=== PATIENT | male | born 1975 | race Caucasian/White ===

== ENCOUNTER 2017-10-24 16:36 | Emergency (ER) | payer OTHER ==
[~2017-10-24] VITALS: Ht 190.5 cm; Wt 127.0 kg
[~2017-10-24 16:36] MED LIST: ACETAMINOPHEN-1 EAC1 PO; ALPRAZOLAM 0.50.5 M1 PO; ALPRAZOLAM0.5 M1 PO; AMERGE2.5 MG PO; BUSPAR30 MG PO; BUSPIRONE HCL10 MG PO; BUTALB-APAP-CA1 EACH PO; CEFDINIR300 MG PO; CIPRO500 MG PO; CIPROFLOXACIN500 M1 PO; CLONAZEPAM 0.50.5 M1 PO; DICLOFENAC SODI75 MG; FIORICET 50-321 EACH PO; FLOMAX0.4 MG PO; FROVA2.5 MG PO; GABAPENTIN; GABAPENTIN 100100 MG PO; HYDROCODONE-AP1 EAC6 PO; LEVORPHANOL TART2 MG PO; LEVSIN0.125 MG SUBLING; LEXAPRO 10 MG T10 M1 PO; LUNESTA3 MG PO; MAPAP500 MG PO; MIDRIN; NAPROSYN500 MG PO; NORCO 5-325 TA1 EACH PO; NORTRIPTYLINE H10 M1 PO; NORTRIPTYLINE H75 M1 PO; OMEPRAZOLE40 MG PO; OSCIMIN0.125 MG SUBLING; PEPCID40 MG PO; PERCOCET 5-3251 EACH PO; PERCOCET 7.5-31 EACH PO; PHENAZOPYRIDIN200 M2 PO; PRISTIQ50 M1 PO; PRISTIQ50 MG PO; PYRIDIUM200 MG PO; QSYMIA 11.25 M1 EACH; REMERON15 MG PO; RIZATRIPTAN5 M1 PO; RIZATRIPTAN5 MG PO; TAMSULOSIN HCL0.4 MG PO; TOPROL XL100 MG PO; TOPROL XL50 MG PO; ULTRAM 50MG TAB50 MG PO; WELCHOL 625 MG625 M1 PO; XANAX1 MG PO; ZANTAC 150MG T150 MG; ZANTAC300 MG PO; ZOFRAN ODT4 MG; ZOFRAN ODT4 MG PO; ZOFRAN4 MG PO
[2017-10-24] MEDS ORDERED: DIPHENHIST50 MG PO (16:49)
[2017-10-24 17:08] LABS: ABSOLUTE BASOPHILS 0.1 thou/uL (0.0-0.2); ABSOLUTE EOSINOPHILS 0.3 thou/uL (0.0-0.7); ABSOLUTE LYMPHOCYTES 2.8 thou/uL (0.8-5.3); ABSOLUTE MONOCYTES 0.5 thou/uL (0.0-1.2); ABSOLUTE NEUTROPHILS 5.4 thou/uL (1.6-8.1); BASOPHILS 0.7 %; EOSINOPHILS 3.3 %; HEMATOCRIT 46.6 % (42.0-52.0); HEMOGLOBIN 15.6 gm/dL (14.0-18.0); LYMPHOCYTES 30.6 %; MCH 30.9 pg (26.0-34.0); MCHC 33.4 g/dL (28.0-37.0); MCV 92.5 fL (80.0-100.0); MPV 7.6 fl. (7.2-11.1); NUCLEATED RBCS 0 /100WBC; PLATELET COUNT* 206 thou/uL (150-400); POLYS 60.4 %; RBC 5.04 mil/uL (4.50-6.00); RDW-CV 13.1 % (10.5-14.5)
[2017-10-24 17:15] LABS: CALCIUM 8.6 mg/dL (8.5-10.1); CREATININE 1.1 mg/dL (0.6-1.3); POTASSIUM 4.1 mmol/L (3.5-5.1)
[2017-10-24 17:19] LABS: URINE BILIRUBIN NEGATIVE (Negative); URINE BLOOD NEGATIVE (Negative); URINE CLARITY CLEAR; URINE COLOR YELLOW; URINE GLUCOSE-RANDOM NEGATIVE (Negative); URINE KETONES NEGATIVE (Negative); URINE LEUKOCYTES-REFLEX NEGATIVE (Negative); URINE NITRITE-REFLEX NEGATIVE (Negative); URINE PROTEIN NEGATIVE (Negative); URINE SPECIFIC GRAVITY 1.015 (1.005-1.030)
[2017-10-24 17:19] LABS: ALBUMIN 3.6 g/dL (3.4-5.0); TOTAL BILIRUBIN 0.1 mg/dL (<0.1-1.0); TOTAL PROTEIN 7.2 g/dL (6.4-8.2)
[2017-10-24] MEDS ORDERED: HYDROCODONE-AP1 EAC6 PO (18:05)
[2017-10-24 18:11] VITALS: BP 156/100
== END 2017-10-24 18:12 | disposition home or self-care (01) ==
LOC: M.ERS 16:36
PROVIDERS: Physician Assistant
DX: R10.31 Right lower quadrant pain (principal); I10 Essential (primary) hypertension; F41.9 Anxiety disorder, unspecified; G43.909 Migraine, unspecified, not intractable, without status migrainosus; Z87.442 Personal history of urinary calculi; Z98.890 Other specified postprocedural states; Z98.84 Bariatric surgery status; Z87.891 Personal history of nicotine dependence; Z88.6 Allergy status to analgesic agent

== ENCOUNTER 2018-01-13 20:20 | Emergency (ER) | payer OTHER ==
[~2018-01-13] VITALS: Ht 190.5 cm; Wt 127.0 kg
[~2018-01-13 20:20] MED LIST changes: +DIPHENHIST50 MG PO
[2018-01-13] MEDS ORDERED: ONDANSETRON HCL4 M2 PO (21:01)
[2018-01-13 22:56] VITALS: BP 134/90
== END 2018-01-13 22:56 | disposition home or self-care (01) ==
LOC: M.ERS 20:20
DX: G43.909 Migraine, unspecified, not intractable, without status migrainosus (principal); I10 Essential (primary) hypertension; F41.9 Anxiety disorder, unspecified; Z98.84 Bariatric surgery status; Z88.6 Allergy status to analgesic agent

== ENCOUNTER 2018-03-02 12:52 | Emergency (ER) | payer OTHER ==
[~2018-03-02] VITALS: Ht 190.5 cm; Wt 127.0 kg
[~2018-03-02 12:52] MED LIST changes: +ONDANSETRON HCL4 M2 PO
[2018-03-02] MEDS ORDERED: RIZATRIPTAN5 MG PO (13:10)
[2018-03-02] MEDS ORDERED: NORFLEX100 MG PO (14:21)
[2018-03-02 14:27] VITALS: BP 148/112
== END 2018-03-02 14:28 | disposition home or self-care (01) ==
LOC: M.ERS 12:52
DX: S70.01XA Contusion of right hip, initial encounter (principal); F41.9 Anxiety disorder, unspecified; G43.909 Migraine, unspecified, not intractable, without status migrainosus; I10 Essential (primary) hypertension; Z87.442 Personal history of urinary calculi; Z96.0 Presence of urogenital implants; Z88.6 Allergy status to analgesic agent; Z87.891 Personal history of nicotine dependence; W10.8XXA Fall (on) (from) other stairs and steps, initial encounter; Y93.89 Activity, other specified; Y92.89 Other specified places as the place of occurrence of the external cause; Y99.8 Other external cause status

== ENCOUNTER 2018-10-21 16:13 | Emergency (ER) | payer OTHER ==
[~2018-10-21] VITALS: Ht 185.4 cm; Wt 131.0 kg
[~2018-10-21 16:13] MED LIST changes: +NORFLEX100 MG PO
[2018-10-21 16:52] LABS: URINE BILIRUBIN NEGATIVE (Negative); URINE BLOOD NEGATIVE (Negative); URINE CLARITY CLEAR; URINE COLOR YELLOW; URINE GLUCOSE-RANDOM NEGATIVE (Negative); URINE KETONES TRACE (Negative); URINE LEUKOCYTES-REFLEX NEGATIVE (Negative); URINE NITRITE-REFLEX NEGATIVE (Negative); URINE PROTEIN NEGATIVE (Negative); URINE UROBILINOGEN 0.2 E.U./dl (0.2-1.0)
[2018-10-21 17:26] LABS: ABSOLUTE BASOPHILS 0.1 thou/uL (0.0-0.2); ABSOLUTE EOSINOPHILS 0.2 thou/uL (0.0-0.7); ABSOLUTE LYMPHOCYTES 3.1 thou/uL (0.8-5.3); ABSOLUTE MONOCYTES 0.5 thou/uL (0.0-1.2); ABSOLUTE NEUTROPHILS 4.2 thou/uL (1.6-8.1); BASOPHILS 0.9 %; EOSINOPHILS 1.9 %; HEMATOCRIT 47.1 % (42.0-52.0); HEMOGLOBIN 15.7 gm/dL (14.0-18.0); LYMPHOCYTES 38.5 %; MCH 29.9 pg (26.0-34.0); MCHC 33.4 g/dL (28.0-37.0); MCV 89.6 fL (80.0-100.0); MONOCYTES 6.7 %; MPV 8.5 fl. (7.2-11.1); NUCLEATED RBCS 0 /100WBC; PLATELET COUNT* 213 thou/uL (150-400); RBC 5.25 mil/uL (4.50-6.00); RDW-CV 13.7 % (10.5-14.5); WBC 8.1 thou/uL (4.0-11.0)
[2018-10-21 17:31] LABS: CALCIUM 8.7 mg/dL (8.5-10.1); CREATININE 1.3 mg/dL (0.6-1.3); POTASSIUM 3.8 mmol/L (3.5-5.1)
[2018-10-21 17:36] LABS: ALBUMIN 3.9 g/dL (3.4-5.0); TOTAL BILIRUBIN 0.5 mg/dL (<0.1-1.0); TOTAL PROTEIN 7.6 g/dL (6.4-8.2)
[2018-10-21] MEDS ORDERED: ZOFRAN ODT4 MG PO (20:33)
[2018-10-21 20:47] VITALS: BP 134/93
--- NOTE | 2018-10-22 16:26 | EKG ---
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
== END 2018-10-21 20:48 | disposition home or self-care (01) ==
LOC: M.ERS 16:13
PROVIDERS: Nurse Practitioner Family
DX: R10.11 Right upper quadrant pain (principal); R11.2 Nausea with vomiting, unspecified; F41.9 Anxiety disorder, unspecified; G43.909 Migraine, unspecified, not intractable, without status migrainosus; I10 Essential (primary) hypertension; Z87.891 Personal history of nicotine dependence; Z88.6 Allergy status to analgesic agent; Z90.49 Acquired absence of other specified parts of digestive tract; Z87.442 Personal history of urinary calculi

== ENCOUNTER 2019-07-11 14:41 | Emergency (ER) | payer OTHER ==
[~2019-07-11] VITALS: Ht 190.5 cm; Wt 120.2 kg
[2019-07-11 15:29] LABS: ABSOLUTE BASOPHILS 0.1 thou/uL (0.0-0.2); ABSOLUTE EOSINOPHILS 0.2 thou/uL (0.0-0.7); ABSOLUTE LYMPHOCYTES 2.4 thou/uL (0.8-5.3); ABSOLUTE MONOCYTES 0.5 thou/uL (0.0-1.2); ABSOLUTE NEUTROPHILS 5.5 thou/uL (1.6-8.1); BASOPHILS 1.2 %; EOSINOPHILS 2.1 %; HEMATOCRIT 48.6 % (42.0-52.0); HEMOGLOBIN 16.2 gm/dL (14.0-18.0); LYMPHOCYTES 27.5 %; MCH 29.6 pg (26.0-34.0); MCHC 33.2 g/dL (28.0-37.0); MONOCYTES 6.1 %; MPV 8.7 fl. (7.2-11.1); NUCLEATED RBCS 0 /100WBC; PLATELET COUNT* 250 thou/uL (150-400); POLYS 63.1 %; RBC 5.46 mil/uL (4.50-6.00); WBC 8.7 thou/uL (4.0-11.0)
[2019-07-11 15:34] LABS: ANION GAP 10 mmol/L (7-16); BUN 8 mg/dL (7-18); CALCIUM 9.2 mg/dL (8.5-10.1); CHLORIDE 104 mmol/L (98-107); CO2 26 mmol/L (21-32); CREATININE 1.3 mg/dL (0.6-1.3); GLUCOSE 100 mg/dL (70-99); POTASSIUM 3.8 mmol/L (3.5-5.1); SODIUM 140 mmol/L (136-145)
[2019-07-11 15:36] LABS: PROTIME 10.2 Seconds (9.20-11.50)
[2019-07-11 15:43] LABS: ALBUMIN 4.1 g/dL (3.4-5.0); ALKALINE PHOSPHATASE 115 U/L (46-116); AMYLASE 36 U/L (25-115); LIPASE 126 U/L (73-393); SGOT 19 U/L (15-37); SGPT 33 U/L (30-65); TOTAL BILIRUBIN 0.3 mg/dL (<0.1-1.0); TOTAL PROTEIN 7.8 g/dL (6.4-8.2); TROPONIN-I LEVEL <0.06 ng/mL (<0.06)
[2019-07-11 16:23] LABS: URINE BLOOD NEGATIVE (Negative); URINE CLARITY CLEAR; URINE COLOR YELLOW; URINE GLUCOSE-RANDOM NEGATIVE (Negative); URINE KETONES 1+ (Negative); URINE LEUKOCYTES-REFLEX NEGATIVE (Negative); URINE NITRITE-REFLEX NEGATIVE (Negative); URINE PROTEIN TRACE (Negative); URINE SPECIFIC GRAVITY >= 1.030 (1.005-1.030); URINE UROBILINOGEN 0.2 E.U./dl (0.2-1.0)
[2019-07-11 16:24] LABS: ICTOTEST (BILI CONFIRMATORY) Negative (Negative); URINE BILIRUBIN 1+ (Negative)
[2019-07-11] MEDS ORDERED: ZOFRAN ODT4 MG PO (18:59)
[2019-07-11] MEDS ORDERED: NORCO 10-325 T1 EACH PO (18:59)
[2019-07-11 19:15] VITALS: BP 130/92
--- NOTE | 2019-07-12 10:03 | EKG ---
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 : 1975 Requested By: Alfreda Green Order Number: [id number] MD: Hermann Locke Measurements Intervals [place] Rate: 96 P: ND: QRS: 50 QRSD: 134 T: 48 QT: 369 QTc: 467 Interpretive Statements sinus rhythm Artifact in lead(s) I,II,aVR,aVL,aVF,V5,V6 Compared to ECG 10/21/2018 17:01:07 rate increased Electronically Signed On 07-12-2019 10:02:53 CDT by Hermann Locke [email or web address] <ELECTRONICALLY SIGNED> By: Hermann Locke MD, [facility] 07/12/19 1002 1536 1536 Hermann Locke MD, [facility] /EPI
== END 2019-07-11 19:17 | disposition home or self-care (01) ==
LOC: M.ERS 14:41
PROVIDERS: Personal Emergency Response Attendant
DX: K83.8 Other specified diseases of biliary tract (principal); R10.11 Right upper quadrant pain; F41.9 Anxiety disorder, unspecified; G43.909 Migraine, unspecified, not intractable, without status migrainosus; I10 Essential (primary) hypertension; Z87.891 Personal history of nicotine dependence; Z88.6 Allergy status to analgesic agent; Z88.8 Allergy status to other drugs, medicaments and biological substances; Z90.49 Acquired absence of other specified parts of digestive tract; Z87.442 Personal history of urinary calculi

== ENCOUNTER 2020-04-13 14:29 | Emergency (ER) | payer OTHER ==
[~2020-04-13] VITALS: Ht 190.5 cm; Wt 111.1 kg
[~2020-04-13 14:29] MED LIST changes: +NORCO 10-325 T1 EACH PO
[2020-04-13] MEDS ORDERED: AMERGE1 MG PO (14:42)
[2020-04-13 15:44] LABS: ABSOLUTE BASOPHILS 0.1 thou/uL (0.0-0.2); ABSOLUTE EOSINOPHILS 0.2 thou/uL (0.0-0.7); ABSOLUTE MONOCYTES 0.4 thou/uL (0.0-1.2); ABSOLUTE NEUTROPHILS 4.5 thou/uL (1.6-8.1); BASOPHILS 1.3 %; HEMATOCRIT 45.7 % (42.0-52.0); HEMOGLOBIN 15.2 gm/dL (14.0-18.0); MCHC 33.2 g/dL (28.0-37.0); MCV 87.3 fL (80.0-100.0); MONOCYTES 5.2 %; MPV 7.9 fl. (7.2-11.1); NUCLEATED RBCS 0 /100WBC; PLATELET COUNT* 267 thou/uL (150-400); POLYS 54.5 %; RBC 5.23 mil/uL (4.50-6.00); WBC 8.2 thou/uL (4.0-11.0)
[2020-04-13 16:03] LABS: CALCIUM 9.1 mg/dL (8.5-10.1); CREATININE 1.2 mg/dL (0.6-1.3); POTASSIUM 3.5 mmol/L (3.5-5.1)
[2020-04-13 16:07] LABS: ALBUMIN 4.2 g/dL (3.4-5.0); TOTAL BILIRUBIN 0.6 mg/dL (<0.1-1.0); TOTAL PROTEIN 8.1 g/dL (6.4-8.2)
[2020-04-13 16:40] VITALS: BP 154/87
--- NOTE | 2020-04-14 09:09 | EKG ---
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: [facility] : 1975 Requested By: Aron Jolley Order Number: [id number] MD: Oracio Nick Measurements Intervals [place] Rate: 75 P: NE: QRS: 51 QRSD: 104 T: 42 QT: 432 QTc: 483 Interpretive Statements Sinus rhythm Borderline prolonged QT interval Baseline wander in lead(s) II,III,aVF,V1 Compared to ECG 07/11/2019 15:36:55 QT prolongation noted Electronically Signed On 04-14-2020 9:08:49 CDT by Oracio Nick [email or web address] <ELECTRONICALLY SIGNED> By: Oracio Nick MD, FACC 04/14/20 0908 1552 1552 Oracio Nick MD, [facility] /EPI
== END 2020-04-13 16:56 | disposition home or self-care (01) ==
LOC: M.ERS 14:29
PROVIDERS: Emergency Medicine
DX: G43.909 Migraine, unspecified, not intractable, without status migrainosus (principal); F41.9 Anxiety disorder, unspecified; I10 Essential (primary) hypertension; Z90.49 Acquired absence of other specified parts of digestive tract; Z87.442 Personal history of urinary calculi; Z87.891 Personal history of nicotine dependence; Z88.0 Allergy status to penicillin; Z88.6 Allergy status to analgesic agent; Z88.8 Allergy status to other drugs, medicaments and biological substances

== ENCOUNTER 2021-03-28 18:49 | Emergency (ER) | payer OTHER ==
[~2021-03-28] VITALS: Ht 190.5 cm; Wt 111.1 kg
[~2021-03-28 18:49] MED LIST changes: +AMERGE1 MG PO
[2021-03-28 19:10] LABS: ABSOLUTE BASOPHILS 0.1 thou/uL (0.0-0.2); ABSOLUTE EOSINOPHILS 0.5 thou/uL (0.0-0.7); ABSOLUTE MONOCYTES 0.5 thou/uL (0.0-1.2); ABSOLUTE NEUTROPHILS 4.9 thou/uL (1.6-8.1); BASOPHILS 1.2 %; EOSINOPHILS 6.5 %; HEMOGLOBIN 14.8 gm/dL (14.0-18.0); LYMPHOCYTES 24.8 %; MCH 28.7 pg (26.0-34.0); MCHC 33.7 g/dL (28.0-37.0); MONOCYTES 6.4 %; MPV 7.5 fl. (7.2-11.1); NUCLEATED RBCS 0 /100WBC; PLATELET COUNT* 198 thou/uL (150-400); POLYS 61.1 %; RBC 5.17 mil/uL (4.50-6.00); RDW-CV 14.8 % (10.5-14.5)
[2021-03-28 19:21] LABS: CREATININE 1.5 mg/dL (0.6-1.3); POTASSIUM 3.7 mmol/L (3.5-5.1)
[2021-03-28 19:32] LABS: TOTAL BILIRUBIN 0.5 mg/dL (<0.1-1.0); TOTAL PROTEIN 7.9 g/dL (6.4-8.2)
[2021-03-28 22:40] VITALS: BP 127/78
--- NOTE | 2021-03-29 11:34 | EKG ---
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: : 1975 Requested By: Rene Ruffin Order Number: [id number] MD: Hermann Locke Measurements Intervals [place] Rate: 91 P: 34 VT: 129 QRS: 37 QRSD: 110 T: 50 QT: 375 QTc: 462 Interpretive Statements Sinus rhythm Borderline low voltage, extremity leads Compared to ECG 04/13/2020 15:52:19 No significant changes Electronically Signed On 03-29-2021 11:33:55 CDT by Hermann Locke [email or web address] <ELECTRONICALLY SIGNED> By: Hermann Locke MD, [facility] 03/29/21 1133 1854 1854 Hermann Locke MD, [facility] /EPI
[2021-03-29] MEDS ORDERED: ADDERALL 30 MG30 MG PO (16:23)
== END 2021-03-28 22:41 | disposition home or self-care (01) ==
LOC: M.ERS 18:49
PROVIDERS: Emergency Medicine Emergency Medical Services
DX: R07.89 Other chest pain (principal); Z20.822 Contact with and (suspected) exposure to COVID-19; I10 Essential (primary) hypertension; G43.909 Migraine, unspecified, not intractable, without status migrainosus; Z87.442 Personal history of urinary calculi; Z90.49 Acquired absence of other specified parts of digestive tract

== ENCOUNTER 2021-03-29 13:36 | Observation (INO) | payer OTHER ==
[2021-03-29] VITALS (7 sets, daily range): BP systolic 100–130; BP diastolic 56–76
[~2021-03-29] VITALS: Ht 190.5 cm; Wt 120.8 kg
[2021-03-29 14:10] LABS: ABSOLUTE BASOPHILS 0.1 thou/uL (0.0-0.2); ABSOLUTE EOSINOPHILS 0.4 thou/uL (0.0-0.7); ABSOLUTE LYMPHOCYTES 1.9 thou/uL (0.8-5.3); ABSOLUTE MONOCYTES 0.5 thou/uL (0.0-1.2); ABSOLUTE NEUTROPHILS 4.6 thou/uL (1.6-8.1); EOSINOPHILS 5.4 %; HEMATOCRIT 40.1 % (42.0-52.0); HEMOGLOBIN 13.3 gm/dL (14.0-18.0); LYMPHOCYTES 25.9 %; MCH 28.3 pg (26.0-34.0); MCHC 33.3 g/dL (28.0-37.0); MONOCYTES 6.1 %; MPV 7.4 fl. (7.2-11.1); NUCLEATED RBCS 0 /100WBC; PLATELET COUNT* 186 thou/uL (150-400); POLYS 61.6 %; RBC 4.71 mil/uL (4.50-6.00); RDW-CV 14.2 % (10.5-14.5); WBC 7.4 thou/uL (4.0-11.0)
[2021-03-29 14:20] LABS: CALCIUM 8.2 mg/dL (8.5-10.1); CREATININE 1.2 mg/dL (0.6-1.3); POTASSIUM 4.3 mmol/L (3.5-5.1)
[2021-03-29 14:24] LABS: ALBUMIN 3.3 g/dL (3.4-5.0); TOTAL BILIRUBIN 0.3 mg/dL (<0.1-1.0); TOTAL PROTEIN 6.6 g/dL (6.4-8.2)
[2021-03-29] MEDS ORDERED: ADDERALL 30 MG30 MG PO (16:23)
--- NOTE | 2021-03-29 19:00 | NUR ---
Pt admitted from ED this evening; c/o pain/pressure to L upper chest which radiates to other side of chest. Rates 6-10. A&O X4, up ad kris. Orthostatic BPs normal. Pt's fiance, January, states pt has had this chest pain/pressure on & off, and has at times been dizzy and sweaty when getting up and changing positions. Pt had stress test scheduled for Monday. Will be NPO after MN for cardiology consult. VSS. SR per monitor. Will continue to monitor.
--- NOTE | 2021-03-29 20:00 | NUR ---
RECEIVED REPORT AND ASSUMED CARE OF PT, ASSESSMENT COMPLETED. TYRESE' AT BEDSIDE. PT STATES HE STILL HAS LT SIDED CHEST PAIN INTO LT SHOULDER, REASSUREANCE GIVEN. DISCUSSED POSS STRESS TEST OR OTHER CARDIAC TESTS FOR AM WITH NPO STATUS. TELEMETRY ON SHOWING SR. WILL CONT TO MONITOR AND ASSIST NEEDED.
[2021-03-30] VITALS: BP 109/87
[2021-03-30 04:00] VITALS: BP 110/72
--- NOTE | 2021-03-30 07:14 | NUR ---
SLEPT WELL TONIGHT, AWAKENS EASILY FOR VS. NO CHANGE IN ASSESSMENT. NO DISCOMFORT VERBALIZED THIS AM. NPO SINCE MN FOR POSS CARDIAC TESTS. TELEMETRY SHOWING SR. HS GOALS OF REST AND SAFETY ACHIEVED. HOURLY ROUNDING OBSERVED.
[2021-03-30 08:00] VITALS: BP 97/68
--- NOTE | 2021-03-30 08:57 | EKG ---
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 /EPI
--- NOTE | 2021-03-30 11:30 | CON ---
[address] [address] CONSULTATION Name: TOSHA CARLOS Room: [address] M.R.#: [id number] Admission: 03/29/21 Attend Phys: Linda Oakley MD Discharge: Date of : 71 Report #: [id number] THIS REPORT FOR: cc: DANIEL STARKEY,Hermann Chou MD [facility] ~ DOC #: [id number] cc: Daniel Locke MD [facility] DATE OF CONSULTATION: 03/29/2021 HISTORY OF PRESENT ILLNESS: The patient is a 45-year-old single white male who I was asked to see in the Emergency Room today after complaint of left shoulder pain. The patient has no previous history of heart disease. He notes that last night after working in the yard, he felt some left shoulder pain. He actually came to the Emergency Room here at [facility]. He was evaluated and sent home. He was told to follow up with a android framework developer. Today when he stepped out of bed, he again felt pain in his left shoulder. He felt somewhat short of breath, diaphoretic and nauseated. His fiancee drove him to the Emergency Room. He is admitted for further evaluation and treatment. He denies any exertional chest pressure or dyspnea on exertion. He denies any recent trauma to his shoulder. He has had no swelling or rash. Denies the pain being related to food. He has had no fever or cough. He has had no bleeding. He does note occasional episodes where his heart rate will increase. He has had no recent syncope. PAST MEDICAL HISTORY: He has a history of depression and ADD. PAST SURGICAL HISTORY: Significant for cholecystectomy. He has a history of morbid obesity. He previously weighed 350 pounds and had gastric bypass surgery. He had a previous surgery on his foot. MEDICATIONS: Currently, he is on psychiatric medications, but no heart pills. ALLERGIES: He has allergies to PENICILLIN, NONSTEROIDAL DRUGS. FAMILY HISTORY: His father had heart disease. Grandfather had a heart attack. SOCIAL HISTORY: He has been . He is now engaged. 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 He lives in [place]. He quit smoking a year ago. He rarely drinks alcohol. No illicit drug use. REVIEW OF SYSTEMS: He has a history of headaches. No history of asthma, [place] [address] CONSULTATION Name: TOSHA CARLOS Room: [address]#: [id number] Admission: 03/29/21 Attend Phys: Linda Oakley MD Discharge: Date of : 71 Report #: [id number] disease. He had kidney stones. No chronic skin condition. He has seen a psychiatrist in the past. PHYSICAL EXAMINATION: GENERAL: Revealed a young male, who appeared in no distress. VITAL SIGNS: He had a blood pressure of 120/70, pulse 60. He is afebrile. HEENT: He was anicteric. Conjunctivae pink. Mucosa moist. NECK: Veins not distended. No carotid bruits. Neck was supple. CHEST: Clear to auscultation. CARDIOVASCULAR: Regular rate and rhythm. No murmurs. ABDOMEN: Soft. EXTREMITIES: No edema. Posterior tibial pulse 2+ bilaterally. SKIN: Cool and dry. NEUROLOGIC: Nonfocal. IMAGING DATA: His ECG showed sinus rhythm. There were no significant ST or T-wave changes noted. His workup in the Emergency Room, he had a portable chest x-ray that showed normal heart size, clear lung nava. LABORATORY DATA: Sodium 140, creatinine 1.2. His troponins were all less than 0.06. White blood cell count 7.4, hemoglobin 13.3. His COVID antigen test was negative. IMPRESSION AND RECOMMENDATIONS: 1. Left shoulder pain. Suspect noncardiac. I would consider a stress echocardiogram. 2. History of morbid obesity. The patient had gastric bypass in the past. 3. History of depression. Hermann Locke MD [facility] [place] <ELECTRONICALLY SIGNED> By: Hermann Locke MD, [facility] 03/30/21 1130 1521 0102Dminal Locke MD, [facility] /nt
--- NOTE | 2021-03-30 12:50 | EXE ---
[place] [address] STRESS ECHOCARDIOGRAM Name: TOSHA CARLOS Room: [address] M.R.#: [id number] Admission: 03/29/21 Attend Phys: Linda Oakley, Discharge: Date of : 71 Date of Service: 03/30/21 1249 Report #: [id number] THIS REPORT FOR: cc: DANIEL STARKEY,DANIEL Locke,Hermann Monteolngo MD [facility] ~ APPROVED REPORT Study performed: 03/30/2021 11:28:55 Exam: Stress Echocardiogram Indication: Chest pain , Dyspnea Patient Location: In-Patient Stress Nurse: Clara Florence RN Room #: [facility] Supervising Physician: Oracio Nick MD Ht: 6 ft 3 in HR: 62 bpm BP: 115/82 mmHg Medical History Cardiac Risk Factors: Age, , HTN, Tobacco History (Former), FHX of CAD Procedure The patient underwent an Exercise Stress Test using the Benjamin Protocol. Blood pressure, heart rate, and EKG were monitored. An Echocardiogram was performed by obstetrics technician in four stages in quad fashion. At peak stress, four selected images were obtained and placed side by side with resting images for comparison. Stress Test Details Stress Test: Exercise stress testing was performed using a Benjamin protocol. HR Resting HR: 62 bpm Max Heart Rate (APMHR): 173 bpm Max HR Achieved: 148 bpm Target HR (85% APMHR): 147 bpm % of APMHR: 85 Recovery HR: 89 bpm HR response to stress: Normal HR response to stress BP Resting BP: 115/82 mmHg Max BP: 181/[place] [address] STRESS ECHOCARDIOGRAM Name: TERRANCETOSHA Rosas Room: [address]#: [id number] Admission: 03/29/21 Attend Phys: Linda Oakley, Discharge: Date of : 71 Date of Service: 03/30/21 1249 Report #: [id number] Recovery BP: 133/88 mmHg BP response to stress: Normal blood pressure response to stress. ECG Resting ECG: Sinus Rhythm Stress ECG: Sinus Tachycardia ST Change: None Maximum ST Deviation: 0 mm Arrhythmia: None Recovery ECG: Sinus Rhythm Recovery ST Change: None Recovery ST Deviation: 0 mm Recovery Arrhythmia: None Clinical Reason for Termination: Maximal effort Exercise duration: 9 min 47 sec Highest Stage Achieved: Stage 4: 4.2 mph at 16% grade. Exercise capacity: 11.45 METs Pre-Stress Echo The resting Echocardiogram showed normal left ventricular contractility with an estimated Ejection Fraction of about 55-60%. Post-Stress Echo The stress Echocardiogram showed normal left ventricular contractility with an estimated Ejection Fraction of about 65-70%. Compared to rest, there were no stress-induced wall motion abnormalities. Conclusion Clinical Response: Equivocal Exercise Capacity: Average Stress ECG Response: Non-ischemic Stress Echo Images: Non-ischemic low risk stress echo for predicting future cardiac events Other Information Study Quality: [place] [address] STRESS ECHOCARDIOGRAM Name: TOSHA CARLOS Room: [address]#: [id number] Admission: 03/29/21 Attend Phys: Linda Oakley, Discharge: Date of : 71 Date of Service: 03/30/21 1249 Report #: [id number] <Conclusion> low risk stress echo for predicting future cardiac events <ELECTRONICALLY SIGNED> By: Hermann Locke MD, FACC 03/30/21 1249 48 Hermann Locke MD, FACC /INF
[2021-03-30 13:28] VITALS: BP 97/68
--- NOTE | 2021-03-30 13:40 | NUR ---
RECEIVED REPORT AROUND 0715. ASSUMED CARE. VS AND ASSESSMENT CHARTED. IV INTACT. HEART MONITOR ATTACHED AT SR. MEDS GIVEN PER DEC. HOURLY ROUNDING PERFORMED. STRES ECHO THIS SHIFT. POSSIBLE D/C AFTERWARDS. DR MONTIEL CALLED ON STRESS ECHO RESULTS. OK TO D/C FROM HIS STAND POINT. D/C ORDERS RECEIVED. IV TAKEN OUT. HEART MONITOR OFF. DISCHARGE PACKET GIVEN TO PT. COMMUNICATED UNDERSTANDING. PT LEFT UNIT VIA AMBULATORY WITH NURSING STAFF AND ALL BELONGINGS AT 1345.
== END 2021-03-30 13:45 | disposition home or self-care (01) ==
LOC: M.ERS 13:36 → M.2W 15:09 → M.TBA-ER 15:09 → M.2W 15:09
PROVIDERS: Emergency Medicine Emergency Medical Services; ADMIT Internal Medicine; ATTEND Internal Medicine
DX: I20.9 Angina pectoris, unspecified (principal); Z20.822 Contact with and (suspected) exposure to COVID-19; R55 Syncope and collapse; F41.9 Anxiety disorder, unspecified; G43.909 Migraine, unspecified, not intractable, without status migrainosus; I10 Essential (primary) hypertension; F32.9 Major depressive disorder, single episode, unspecified; E66.01 Morbid (severe) obesity due to excess calories; Z68.33 Body mass index [BMI] 33.0-33.9, adult; Z87.891 Personal history of nicotine dependence; Z79.899 Other long term (current) drug therapy

== ENCOUNTER 2021-08-02 08:53 | Emergency (ER) | payer OTHER ==
[~2021-08-02] VITALS: Ht 190.5 cm; Wt 90.7 kg
[~2021-08-02 08:53] MED LIST changes: +ADDERALL 30 MG30 MG PO
[2021-08-02 12:18] VITALS: BP 134/70
== END 2021-08-02 12:19 | disposition home or self-care (01) ==
LOC: M.ERS 08:53
DX: G43.909 Migraine, unspecified, not intractable, without status migrainosus (principal); R11.2 Nausea with vomiting, unspecified; R20.2 Paresthesia of skin; I10 Essential (primary) hypertension; F41.9 Anxiety disorder, unspecified; Z87.442 Personal history of urinary calculi; Z90.49 Acquired absence of other specified parts of digestive tract; Z98.890 Other specified postprocedural states; Z79.899 Other long term (current) drug therapy; Z88.6 Allergy status to analgesic agent; Z88.0 Allergy status to penicillin; Z88.8 Allergy status to other drugs, medicaments and biological substances; Z87.891 Personal history of nicotine dependence

== ENCOUNTER 2021-08-11 09:18 | Emergency (ER) | payer OTHER ==
[~2021-08-11] VITALS: Ht 190.5 cm; Wt 117.9 kg
[2021-08-11] MEDS ORDERED: HYDROCODON-ACE1 EAC7 PO (10:08)
[2021-08-11 10:22] VITALS: BP 120/75
== END 2021-08-11 10:22 | disposition home or self-care (01) ==
LOC: M.ERS 09:18
DX: S62.396A Other fracture of fifth metacarpal bone, right hand, initial encounter for closed fracture (principal); S60.221A Contusion of right hand, initial encounter; F41.9 Anxiety disorder, unspecified; G43.909 Migraine, unspecified, not intractable, without status migrainosus; I10 Essential (primary) hypertension; Z90.49 Acquired absence of other specified parts of digestive tract; Z87.891 Personal history of nicotine dependence; Z88.6 Allergy status to analgesic agent; Z88.0 Allergy status to penicillin; Z79.899 Other long term (current) drug therapy; W10.8XXA Fall (on) (from) other stairs and steps, initial encounter; Y93.89 Activity, other specified; Y92.89 Other specified places as the place of occurrence of the external cause; Y99.8 Other external cause status